=== PATIENT | female | born 1990 | race Caucasian/White ===

== ENCOUNTER 2018-08-04 21:45 | Outpatient (CLI) | payer BC ==
[~2018-08-04] VITALS: Ht 167.6 cm; Wt 81.2 kg
[2018-08-04 22:56] VITALS: Ht 167.6 cm; Wt 81.2 kg
[2018-08-04 22:57] VITALS: BP 112/72; PULSE 87; RESP 18
[2018-08-05] MEDS ORDERED: PREN-93 PO (00:08)
[2018-08-05] MEDS ORDERED: FERR325T5 PO (00:09)
--- NOTE | 2018-08-05 04:48 | TRIAGE ---
OB Triage Datetime Report Generated by CPN: 08/05/2018 04:48 Datetime: 08/05/2018 02:05 Stage of : OB Triage Datetime: 08/05/2018 01:34 Stage of : OB Triage Labor Evaluation Frequency: 2-4 Monitor Mode: External Duration (sec)2399: 40-60 Pattern: Normal: <= 5 Contractions in 10 Minutes Resting Tone [place]: Relaxed Heart Rate FHR Baseline Rate: 125 Monitor Mode: External US Variability: Moderate 6-25 bpm Accelerations: 15X15 Decelerations: None Category: Category I Pain Assessment Pain Scale: 0 Pain Presence: None/Denies Pain Type: N/A Pain Relief Measures: Comfort Measures Datetime: 08/05/2018 01:00 Stage of : OB Triage Labor Evaluation Frequency: 2-6 Monitor Mode: External Duration (sec)2399: 40-80 Pattern: Normal: <= 5 Contractions in 10 Minutes Resting Tone [place]: Relaxed Heart Rate FHR Baseline Rate: 130 Monitor Mode: External US Variability: Moderate 6-25 bpm Accelerations: 15X15 Decelerations: None Category: Category I Pain Assessment Pain Scale: 0 Pain Presence: None/Denies Pain Type: N/A Pain Relief Measures: Comfort Measures Datetime: 08/05/2018 00:00 Stage of : OB Triage Labor Evaluation Frequency: 2-3 Monitor Mode: External Duration (sec)2399: 40-80 Pattern: Normal: <= 5 Contractions in 10 Minutes Resting Tone [place]: Relaxed Heart Rate FHR Baseline Rate: 130 Monitor Mode: External US Variability: Moderate 6-25 bpm Accelerations: 15X15 Decelerations: None Category: Category I Pain Assessment Pain Scale: 0 Pain Presence: None/Denies Pain Type: N/A Pain Relief Measures: Comfort Measures Datetime: 08/04/2018 23:13 Stage of : OB Triage Datetime: 08/04/2018 23:00 Stage of : OB Triage Labor Evaluation Frequency: 1.5-6 Monitor Mode: External Duration (sec)2399: 40-70 Pattern: Normal: <= 5 Contractions in 10 Minutes Resting Tone [place]: Relaxed Heart Rate FHR Baseline Rate: 120 Monitor Mode: External US Variability: Moderate 6-25 bpm Accelerations: 15X15 Decelerations: None Category: Category I Pain Assessment Pain Scale: 0 Pain Presence: None/Denies Pain Type: N/A Pain Relief Measures: Comfort Measures Datetime: 08/04/2018 22:29 Stage of : OB Triage Assessment Type: Triage Maternal Assessment Level of Consciousness: Fully Conscious DTR's/Clonus: DTRs 2+; No Clonus Headache: Denies Blurred Vision: No Respiratory Effort: Unlabored; Regular Rhythm; Equal Expansion Breath Sounds, Left: Clear and Equal Breath Sounds, Right: Clear and Equal Nausea/Vomiting: Denies RUQ Epigastric Pain: Denies Lower Extremities Edema: None Degree: None Upper Extremities Edema: None Degree: None Facial Edema: None Temperature Route: Oral Fall Risk Assessment History of Falling: (0) No Secondary Diagnosis: (0) No Ambulatory Aid: (0) Bedrest/Nurse Assist IV Therapy: (0) No Gait: (0) Normal/Bedrest/Immobile Mental Status: (0) Oriented to Own Ability Fall Score: 0 Fall Risk Score Definition: No Risk: No action required Datetime: 08/04/2018 22:26 Time of Arrival: 08/04/2018 21:39 EGA: 32.1 Arrived By: Wheelchair Arrived From: Emergency Dept Chief Complaint: BLEEDING Movement: Present Contractions: Denies/Absent Rupture of Membranes: Denies Vaginal Bleeding: Moderate; Bright Red Vaginal Discharge: Denies Recent Sexual Intercouse: Yes Abdominal Trauma: Not Applicable Patient Complaints: Other Time Provider Notified: 08/04/2018 23:45 Provider Notified: Patito Initial Plan: RENATA BABCOCK
[2018-08-05] MEDS ORDERED: MEPERIDINE 25 MG INJ IV ONE (06:30)
[2018-08-05] MEDS ORDERED: LACTATED RINGER'S 1,000 ML IV SCH (06:30)
[2018-08-05] MEDS ORDERED: MEPERIDINE 50 MG INJ IM ONE (06:30)
--- NOTE | 2018-08-05 12:47 | PN ---
Triage Information Date/Time Late entry note August 04, 2018 Reason for visit: Patient here today with complaint of bleeding today after had some bowel movement and unsure whether he was from the hemorrhoid or from vagina. Weeks of Gestation 32 weeks and 1 days /Para Diabetes: none Hypertention: none Additional information 27 years old female with IUP at 32 weeks and 1 day with care at [facility] presented with 1 complaint of having some bleeding after she had bowel movements. She is not sure whether the bleeding was from vagina or rectum. She reports she was constipated. Reports that the blood occurred after the bowel movement and on the stool and with wiping. She denies any leaking of fluid, decreased movement or contractions. Denies any complication during her antepartum course. Reports had a history of hemorrhoid after her first delivery. Currently denies any other symptoms. Objective Vital Signs Date Temp Pulse Resp B/P (MAP) Pulse Ox O2 O2 Flow FiO2 Time Delivery Rate 08/04/18 98.4 87 18 112/72 Room Air 22:57 (85) Heart Rate: 130's Heart Rate Comments NST: Category 1 No contraction on the monitor Exam Appearance: Alert and oriented x4 does not appear to be in any acute distress Abdomen: Soft, gravid, fundal height consider gestational age, no tenderness, no rebound tenderness Sterile speculum examination by RN performed and no blood noted in the vault and cervix appear to be closed and long Results/Medications Results 24 hrs Laboratory Tests Test 08/04/18 22:00 Urine Color SENAIT Urine Clarity SLIGHTLY CLOUDY A Urine pH 7.0 Urine Specific [place] 1.020 Urine Ketones NEGATIVE Urine Nitrite NEGATIVE Urine Bilirubin NEGATIVE Urine Urobilinogen 2+ H Urine Leukocyte Esterase 2+ H Urine Microscopic RBC 24 H Urine Microscopic WBC 15 H Urine Squamous Epithelial Cells FEW Urine Bacteria FEW A Urine Mucus FEW A Urine Hemoglobin 1+ H Urine Glucose NEGATIVE Urine Total Protein NEGATIVE Medications PROCEDURE: US OB placenta limited including transvaginal CLINICAL INDICATION: . Bleeding TECHNIQUE: Multiple transabdominal sonographic and transvaginal images of the pelvis and gravid uterus were obtained. The images were reviewed on a PACS workstation. COMPARISON: No prior studies are available for comparison. FINDINGS: Cervix: Length: 3.05 cm on transvaginal ultrasound. Closed and competent. Gestation: Single live intrauterine gestation. Cardiac activity: 134 beats per minute. Presentation: Cephalic Placenta: Location: Posterior Appearance: No previa or abruption. Amniotic Fluid: Not measured IMPRESSION: 1. Single live intrauterine gestation. 2. Posterior placenta with no evidence of placental abruption or previa seen. 3. The length of the cervix equals 3.05 cm on transvaginal ultrasound. RPTAT: [facility] Imaging Results PROCEDURE: US OB placenta limited including transvaginal CLINICAL INDICATION: . Bleeding TECHNIQUE: Multiple transabdominal sonographic and transvaginal images of the pelvis and gravid uterus were obtained. The images were reviewed on a PACS workstation. COMPARISON: No prior studies are available for comparison. FINDINGS: Cervix: Length: 3.05 cm on transvaginal ultrasound. Closed and competent. Gestation: Single live intrauterine gestation. Cardiac activity: 134 beats per minute. Presentation: Cephalic Placenta: Location: Posterior Appearance: No previa or abruption. Amniotic Fluid: Not measured IMPRESSION: 1. Single live intrauterine gestation. 2. Posterior placenta with no evidence of placental abruption or previa seen. 3. The length of the cervix equals 3.05 cm on transvaginal ultrasound. RPTAT: [facility] Disposition: Discharge Assessment/Plan IUP at 32 weeks and 1 day Bleeding after bowel movements and while wiping likely secondary to internal hemorrhoid No evidence of labor no evidence of abruption or previa Discussed with the patient to monitor it closely and to be seen with her primary OB office within 72 hours after discharge from the hospital If episodes continue to occurs needs to have more further workup by primary OB office labor precautions kick counts discussed the patient Reports has been Rh+. Type and screen obtained in process All questions were answered to patient's best satisfaction. Signs and symptoms of labor and abnormal warning discussed with the patient She understands that she continued to have bleeding after bowel movement need to discuss that as soon as possible with her primary OB office for further workup and evaluation Discussed with patient regarding using plenty of stool softener and adequate p.o. hydration Patient verbalized understanding. SY CELIS MD Aug 05, 2018 12:47
== END 2018-08-05 02:30 | disposition home or self-care (01) ==
LOC: OBT 21:45 → L-D 21:47 → OBT 08-05 02:30
PROVIDERS: ATTEND Specialist
DX: O36.8130 Decreased fetal movements, third trimester, not applicable or unspecified (principal); Z3A.32 32 weeks gestation of pregnancy
CPT/HCPCS: 36415; 76815; 76817; 81001; 86900; 86901; Z7500; G0463; J7120